=== PATIENT | female | born 1955 | race Hispanic/Latino ===

== ENCOUNTER 2016-10-14 07:15 | Day surgery (SDC) | payer OTHER ==
[2016-10-14 07:38] VITALS: BMI 29.0
[2016-10-14 07:52] VITALS: RESP 20; TEMP 98.2; O2SAT 100
[2016-10-14] MEDS ORDERED: (Novolin R) Insulin Human Regular 100 units/ml vial IV ONE (09:12)
[2016-10-14] MEDS ORDERED: Propofol 10 mg/ml Inj (20 ML) ONE (10:02)
[2016-10-14 11:15] VITALS: BP 122/73; PULSE 69
== END 2016-10-14 11:25 | disposition home or self-care (01) ==
LOC: C.ENDO 07:15
PROVIDERS: ATTEND Internal Medicine Gastroenterology
DX: K31.7 Polyp of stomach and duodenum (principal); K44.9 Diaphragmatic hernia without obstruction or gangrene; K31.9 Disease of stomach and duodenum, unspecified; K25.9 Gastric ulcer, unspecified as acute or chronic, without hemorrhage or perforation
CPT/HCPCS: 43239; 82948; 88305; 88342; J1885; J2704